=== PATIENT | male | born 1940 | race African-American/Black ===

== ENCOUNTER 2019-12-28 10:11 | Outpatient (CLI) | payer MEDICARE, SELFPAY | END 2019-12-28 10:12 | disposition home or self-care (01) | LOC: ANHAUDIO 10:13 | PROVIDERS: PCP Internal Medicine; Visit Provider Internal Medicine | DX: H90.A21 Sensorineural hearing loss, unilateral, right ear, with restricted hearing on the contralateral side (principal); H90.A32 Mixed conductive and sensorineural hearing loss, unilateral, left ear with restricted hearing on the contralateral side | CPT/HCPCS: 92557; 92567 ==

== ENCOUNTER 2020-06-04 09:54 | Outpatient (CLI) | payer MEDICARE, SELFPAY ==
--- NOTE | ~2020-06-04 | CT_ITS ---
EXAMINATION: CTA chest DATE: 06/04/2020 10:32 INDICATION: Ascending aortic aneurysm. TECHNIQUE: Computed tomographic angiography (CTA) of the chest was performed with 100 mL Omnipaque-35 0 intravenous contrast. Automated exposure control and iterative reconstruction technique were employ ed. The dose-length product was 610.74 mGy-cm. Maximum intensity projection 3D-reconstructions of the aorta and other arteries were constructed by the technologist on a separate workstation. COMPARISON: Chest CT 01/27/2019 FINDINGS: Lung volumes are small. There are widespread peripheral reticular and groundglass opacities in the lungs bilaterally with areas of chronic atelectasis. No honeycombing. A calcified left lung n odule is consistent with old granulomatous disease. No pleural effusion. The heart size is normal. Th ere are coronary artery calcifications. No pericardial effusion. There is a 4.6 cm fusiform aneurysm of ascending aorta. Descending thoracic aorta is normal in caliber. Again seen are 2 hyperenhancing m asses in the liver with larger measuring 11 mm, likely focal nodular hyperplasia, hemangiomas, or tra nsient hepatic attenuation difference (YADIRA). There are cysts in the kidneys measuring up to 6 mm on the right. There is mild thoracic spondylosis and severe cervical spondylosis. There is a hemangioma in T8 vertebral body. IMPRESSION: 1. Stable 4.6 cm fusiform aneurysm of ascending aorta. 2. Stable diffuse lung disease. The differential diagnosis includes chronic hypersensitivity pneumoni tis, sarcoid, and nonspecific interstitial pneumonia (NSIP). Reviewed, dictated and finalized at location B. IMPRESSION: 1. Stable 4.6 cm fusiform aneurysm of ascending aorta. 2. Stable diffuse lung disease. The differential diagnosis includes chronic hyp ersensitivity pneumonitis, sarcoid, and nonspecific interstitial pneumonia (NSI P).
[2020-06-04 10:25] LABS: Estimated Glomerular Filt Rate > 60
== END 2020-06-04 09:55 | disposition home or self-care (01) ==
LOC: ANHIMG 09:58
PROVIDERS: PCP Internal Medicine; Visit Provider Internal Medicine Cardiovascular Disease
DX: I71.2 Thoracic aortic aneurysm, without rupture (principal); R91.8 Other nonspecific abnormal finding of lung field
CPT/HCPCS: 36415; 71275; Q9967

== ENCOUNTER 2020-06-26 10:28 | Outpatient (CLI) | payer MEDICARE, SELFPAY ==
[2020-06-26 11:10] LABS: Basophils Absolute Auto 0.1 K/mm3 (0.0-0.1); Basophils Percent Auto 0.7 % (0.2-1.2); Eosinophils Absolute Auto 0.2 K/mm3 (0-0.3); Eosinophils Percent Auto 2.3 % (0-4.4); Hematocrit 37.5 % (42.0-52.0); Hemoglobin 12.3 g/dL (14.0-18.0); Immature Granulocyte Absolute 0.01 K/mm3 (0.00-0.031); Immature Granulocyte Percent A 0.1 % (0-0.5); Immature Platelet Fraction Pct 8.7 % (0.9-11.2); Lymphocytes Absolute Auto 2.18 K/mm3 (0.9-3.2); Lymphocytes Percent Auto 26.5 % (18.3-44.2); Mean Corpuscular HGB Conc 32.8 g/dl (32-36); Mean Corpuscular Hemoglobin 28.5 pg (26-34); Mean Platelet Volume 11.9 fl (7.4-10.4); Monocytes Absolute Auto 0.9 K/mm3 (0.1-0.6); Neutrophils Absolute Auto 4.9 K/mm3 (1.3-6.7); Neutrophils Percent Auto 59.4 % (45.5-73.1); Platelet Count Result 144 k/mm3 (150-375); Red Blood Count 4.31 M/mm3 (4.6-6.20); Red Cell Distribution Width 14.5 % (11.5-14.5); White Blood Count 8.2 K/mm3 (4.5-10.0)
[2020-06-26 11:20] LABS: Anion Gap 7 mmol/L (8-16); Blood Urea Nitrogen 20 mg/dL (9-20); Calcium 9.5 mg/dL (8.4-10.2); Carbon Dioxide 27 mmol/L (22-30); Chloride 101 mmol/L (98-107); Estimated Glomerular Filt Rate > 60; Glucose 110 mg/dL (75-110); Potassium 4.1 mmol/L (3.4-5.0); Sodium 135 mmol/L (137-145)
[2020-06-26 11:28] LABS: Hemoglobin A1C 6.1 % (<5.7)
[2020-06-26 11:30] LABS: Creatinine Urine 140.7 mg/dL
[2020-06-26 11:53] LABS: MALB Creatinine Ratio < 4.3 mg/g (0-30); Microalbumin Urine Random < 6.0 mg/L (0-16.7)
== END 2020-06-26 10:29 | disposition home or self-care (01) ==
PROVIDERS: PCP Internal Medicine; Visit Provider Internal Medicine
DX: E11.9 Type 2 diabetes mellitus without complications (principal)
CPT/HCPCS: 36415; 80048; 82043; 83036; 85025; 85055

== ENCOUNTER 2020-07-10 08:00 | Outpatient (CLI) | payer MEDICARE, SELFPAY ==
--- NOTE | ~2020-07-10 | CT_ITS ---
EXAMINATION: CT soft tissue neck w con EXAM DATE: 07/10/2020 09:01 INDICATION: Lump left side of neck. TECHNIQUE: Spiral CT of the neck was performed following intravenous injection of 75 mL Omnipaque 350 . Axial, coronal and sagittal images were reviewed. The dose-length product (DLP) for this examinat ion was 590.72 mGy-cm. The exposure was tailored according to patient size (auto mA exposure control ), and iterative reconstruction (ASIR) was used as additional dose reduction technique. There is no prior study for comparison. FINDINGS: There is an externally placed marker in the left submandibular region. Left submandibular g land is deep to the externally placed marker and there is mild dilation of the submandibular gland du cts, could be results of the 3 mm stone suspected to be in the submandibular duct anteriorly. At the same level there is a mildly enlarged left internal jugular chain lymph node at 1.5 x 1.1 cm. This is the largest cervical lymph node identified. The thyroid gland is unremarkable. The superior mediastinum is unremarkable. The airway is unrema rkable. Parapharyngeal and pre-glottic fat planes are preserved. The opacified vasculature is pat ent. The orbits are unremarkable. Visualized sinuses and mastoid air cells are well aerated. Ch ronic apical linear opacities, correlate with recent pulmonary CT report. There is cervical spondylo sis. IMPRESSION: 1. Palpable abnormality probably left submandibular gland, appears symmetric to the other side but h as mild duct dilation likely result of 3 mm stone in its duct distally. 2. Mildly enlarged left internal jugular chain lymph node, probably reactive. Reviewed, dictated and finalized at location A. IMPRESSION: 1. Palpable abnormality probably left submandibular gland, appears symmetric t o the other side but has mild duct dilation likely result of 3 mm stone in its duct distally. 2. Mildly enlarged left internal jugular chain lymph node, probably reactive.
== END 2020-07-10 08:01 | disposition home or self-care (01) ==
PROVIDERS: PCP Internal Medicine; Visit Provider Internal Medicine
DX: R59.0 Localized enlarged lymph nodes (principal); R91.8 Other nonspecific abnormal finding of lung field
CPT/HCPCS: 70491; Q9967

== ENCOUNTER 2020-08-14 10:22 | Outpatient (CLI) | payer MEDICARE, SELFPAY ==
[2020-08-14 11:03] LABS: Basophils Absolute Auto 0.1 K/mm3 (0.0-0.1); Basophils Percent Auto 0.7 % (0.2-1.2); Eosinophils Absolute Auto 0.2 K/mm3 (0-0.3); Eosinophils Percent Auto 2.4 % (0-4.4); Hematocrit 40.3 % (42.0-52.0); Hemoglobin 12.8 g/dL (14.0-18.0); Immature Granulocyte Absolute 0.01 K/mm3 (0.00-0.031); Immature Granulocyte Percent A 0.1 % (0-0.5); Immature Platelet Fraction Pct 10.2 % (0.9-11.2); Lymphocytes Absolute Auto 2.14 K/mm3 (0.9-3.2); Lymphocytes Percent Auto 29.1 % (18.3-44.2); Mean Corpuscular HGB Conc 31.8 g/dl (32-36); Mean Corpuscular Hemoglobin 28.2 pg (26-34); Mean Corpuscular Volume 88.8 fl (80-100); Mean Platelet Volume 11.9 fl (7.4-10.4); Monocytes Absolute Auto 0.9 K/mm3 (0.1-0.6); Monocytes Percent Auto 11.7 % (2.6-8.5); Neutrophils Absolute Auto 4.1 K/mm3 (1.3-6.7); Platelet Count Result 117 k/mm3 (150-375); Red Blood Count 4.54 M/mm3 (4.6-6.20); Red Cell Distribution Width 14.1 % (11.5-14.5); White Blood Count 7.4 K/mm3 (4.5-10.0)
== END 2020-08-14 10:23 | disposition home or self-care (01) ==
PROVIDERS: PCP Internal Medicine; Visit Provider Internal Medicine
DX: D61.818 Other pancytopenia (principal)
CPT/HCPCS: 36415; 85025; 85055

== ENCOUNTER 2020-08-14 15:40 | Outpatient (CLI) | payer MEDICARE, SELFPAY ==
[2020-08-14 17:30] LABS: Folic Acid 19.8 ng/mL (2.76->20)
== END 2020-08-14 15:41 | disposition home or self-care (01) ==
LOC: ANHLAB 15:41
PROVIDERS: PCP Internal Medicine; Visit Provider Internal Medicine
DX: D61.818 Other pancytopenia (principal)
CPT/HCPCS: 36415; 82607; 82746; 85025; 85055

== ENCOUNTER 2020-12-12 10:00 | Outpatient (CLI) | payer MEDICARE, SELFPAY ==
[2020-12-12 10:51] LABS: Anion Gap 6 mmol/L (8-16); Blood Urea Nitrogen 12 mg/dL (9-20); Calcium 9.5 mg/dL (8.4-10.2); Carbon Dioxide 29 mmol/L (22-30); Chloride 102 mmol/L (98-107); Estimated Glomerular Filt Rate > 60; Glucose 120 mg/dL (75-110); Magnesium 1.5 mg/dL (1.6-2.3); Potassium 4.4 mmol/L (3.4-5.0); Sodium 137 mmol/L (137-145)
== END 2020-12-12 10:01 | disposition home or self-care (01) ==
PROVIDERS: PCP Internal Medicine; Visit Provider Internal Medicine Cardiovascular Disease
DX: I44.2 Atrioventricular block, complete (principal); E11.69 Type 2 diabetes mellitus with other specified complication; E78.5 Hyperlipidemia, unspecified; I10 Essential (primary) hypertension; E11.59 Type 2 diabetes mellitus with other circulatory complications
CPT/HCPCS: 36415; 80048; 83735; 84443

== ENCOUNTER 2021-04-11 08:53 | Outpatient (CLI) | payer MEDICARE, SELFPAY ==
[2021-04-11 10:19] LABS: Anion Gap 7 mmol/L (8-16); Blood Urea Nitrogen 19 mg/dL (9-20); Calcium 9.4 mg/dL (8.4-10.2); Carbon Dioxide 27 mmol/L (22-30); Chloride 105 mmol/L (98-107); Estimated Glomerular Filt Rate > 60; Glucose 111 mg/dL (75-110); Magnesium 1.8 mg/dL (1.6-2.3); Sodium 139 mmol/L (137-145)
== END 2021-04-11 08:54 | disposition home or self-care (01) ==
PROVIDERS: PCP Internal Medicine; Visit Provider Internal Medicine Cardiovascular Disease
DX: E83.42 Hypomagnesemia (principal)
CPT/HCPCS: 36415; 80048; 83735

== ENCOUNTER 2021-10-09 07:15 | Outpatient (CLI) | payer MEDICARE, SELFPAY ==
--- NOTE | ~2021-10-09 | CT_ITS ---
EXAMINATION: CTA chest DATE: 10/09/2021 07:51 INDICATION: Thoracic aortic aneurysm TECHNIQUE: Computed tomographic angiography (CTA) of the chest was performed with 100 mL Omnipque-350 intravenous contrast. Maximum intensity projection 3D-reconstructions of the aorta and other arterie s were constructed by the technologist on a separate workstation. The dose-length product (DLP) was 5 83.75 mGy-cm. Automated exposure control and iterative reconstruction technique were employed. COMPARISON: None. FINDINGS: There is a 4.5 x 4.3 cm fusiform aneurysm of the ascending aorta at the level of the main p ulmonary artery. There is no dissection. The remaining thoracic aorta is normal in caliber. There are stable chronic peripheral widespread reticular and groundglass opacities. No acute airspace opacitie s are identified. There is no pleural effusion or pneumothorax. No pathologically enlarged thoracic l ymph nodes are identified. The heart size is normal. Two stable hyperenhancing masses of the liver me asuring up to 11 mm are again seen, consistent focal nodular lesion nor transient hepatic attenuation difference. Cysts of the kidneys measure up to 6 mm on the right. There is mild thoracic spondylosis . IMPRESSION: 1. Stable fusiform aneurysm of the ascending aorta. 2. Stable chronic diffuse lung disease. Differential as previously described including hypersensitivi ty pneumonitis, sarcoid, and nonspecific interstitial pneumonia. Reviewed, dictated and finalized at location A. NT PROSECUTION ATTORNEY IMPRESSION: 1. Stable fusiform aneurysm of the ascending aorta. 2. Stable chronic diffuse lung disease. Differential as previously described in cluding hypersensitivity pneumonitis, sarcoid, and nonspecific interstitial pne umonia.
[2021-10-09 07:44] LABS: Estimated Glomerular Filt Rate > 60
== END 2021-10-09 07:16 | disposition home or self-care (01) ==
LOC: ANHIMG 07:15
PROVIDERS: PCP Internal Medicine; Visit Provider Internal Medicine Cardiovascular Disease
DX: I71.4 Abdominal aortic aneurysm, without rupture (principal); J98.4 Other disorders of lung
CPT/HCPCS: 71275; Q9967

== ENCOUNTER 2022-02-17 15:41 | Outpatient (CLI) | payer MEDICARE, SELFPAY ==
[2022-02-17 16:12] LABS: Basophils Absolute Auto 0.1 K/mm3 (0.0-0.1); Basophils Percent Auto 0.9 % (0.2-1.2); Eosinophils Absolute Auto 0.2 K/mm3 (0-0.3); Eosinophils Percent Auto 2.1 % (0-4.4); Hematocrit 44.2 % (42.0-52.0); Hemoglobin 13.6 g/dL (14.0-18.0); Immature Granulocyte Absolute 0.02 K/mm3 (0.00-0.031); Immature Granulocyte Percent A 0.2 % (0-0.5); Lymphocytes Absolute Auto 2.37 K/mm3 (0.9-3.2); Mean Corpuscular HGB Conc 30.8 g/dl (32-36); Mean Corpuscular Hemoglobin 28.2 pg (26-34); Mean Corpuscular Volume 91.5 fl (80-100); Mean Platelet Volume 12.1 fl (7.4-10.4); Monocytes Absolute Auto 0.8 K/mm3 (0.1-0.6); Monocytes Percent Auto 9.3 % (2.6-8.5); Neutrophils Absolute Auto 5.3 K/mm3 (1.3-6.7); Neutrophils Percent Auto 60.5 % (45.5-73.1); Platelet Count Result 70 k/mm3 (150-375); Red Blood Count 4.83 M/mm3 (4.6-6.20); Red Cell Distribution Width 14.2 % (11.5-14.5); White Blood Count 8.8 K/mm3 (4.5-10.0)
[2022-02-17 16:50] LABS: Alanine Aminotransferase 32 U/L (4-50); Albumin Level 4.7 g/dL (3.5-5.1); Alkaline Phosphatase 103 U/L (38-126); Anion Gap 6 mmol/L (8-16); Aspartate Amino Transferase 39 U/L (17-59); Bilirubin,Total 0.6 mg/dL (0.2-1.3); Blood Urea Nitrogen 16 mg/dL (9-20); Calcium 9.5 mg/dL (8.4-10.2); Carbon Dioxide 25 mmol/L (22-30); Chloride 104 mmol/L (98-107); Estimated Glomerular Filt Rate > 60; Glucose 83 mg/dL (65-110); Potassium 4.3 mmol/L (3.4-5.0); Sodium 135 mmol/L (137-145)
[2022-02-17 17:28] LABS: Iron 113 ug/dL (49-181); Percent Iron Saturation 37 % (20-50)
[2022-02-17 17:51] LABS: Folic Acid > 20.0 ng/mL (2.76->20)
[2022-02-24 12:36] LABS: Reference Lab Test Result Negative
== END 2022-02-17 15:42 | disposition home or self-care (01) ==
LOC: ANHLAB 15:43
PROVIDERS: PCP Internal Medicine; Visit Provider Internal Medicine Hematology & Oncology
DX: D69.59 Other secondary thrombocytopenia (principal)
CPT/HCPCS: 36415; 80053; 82607; 82728; 82746; 83540; 83550; 85025; 86023

== ENCOUNTER 2022-02-25 09:12 | Outpatient (CLI) | payer MEDICARE, SELFPAY ==
--- NOTE | ~2022-02-25 | US_ITS ---
EXAMINATION: US abdomen complete DATE: 02/25/2022 10:24 INDICATION: Other secondary thrombocytopenia TECHNIQUE: Multiple grayscale and Doppler ultrasound images of the abdomen were obtained. COMPARISON: CT, 10/09/2021 FINDINGS: Bowel gas obscures visualization of the pancreas. The liver is normal with normal echogenic ity and echotexture. No surface nodularity. Normal hepatopetal flow in the main portal vein. The gall bladder is normal with no abnormal wall thickening, pericholecystic fluid or stones. The normal commo n bile duct measures 3 mm. There was no sonographic Oconnor sign. The visualized portions of the aorta and inferior vena cava are normal. The right kidney measures 9.8 x 4.7 x 5.4 cm. The left kidney measures 9.8 x 4.8 x 5.1 cm. The kidney s demonstrate normal parenchymal echogenicity. There is no hydronephrosis. The spleen is not well dem onstrated sonographically but had a normal appearance on the comparison CT. IMPRESSION: 1. No sonographic correlate for the patient's symptoms. Reviewed, dictated and finalized at location A.
== END 2022-02-25 09:13 | disposition home or self-care (01) ==
PROVIDERS: PCP Internal Medicine; Visit Provider Internal Medicine Hematology & Oncology
DX: D69.59 Other secondary thrombocytopenia (principal)
CPT/HCPCS: 76700

== ENCOUNTER 2022-06-10 08:03 | Outpatient (CLI) | payer MEDICARE, SELFPAY ==
[2022-06-10 08:37] LABS: Basophils Absolute Auto 0.1 K/mm3 (0.0-0.1); Basophils Percent Auto 1.1 % (0.2-1.2); Eosinophils Absolute Auto 0.2 K/mm3 (0-0.3); Eosinophils Percent Auto 2.9 % (0-4.4); Hematocrit 42.1 % (42.0-52.0); Hemoglobin 13.6 g/dL (14.0-18.0); Immature Granulocyte Absolute 0.01 K/mm3 (0.00-0.031); Immature Granulocyte Percent A 0.1 % (0-0.5); Immature Platelet Fraction Pct 15.3 % (0.9-11.2); Lymphocytes Absolute Auto 2.28 K/mm3 (0.9-3.2); Lymphocytes Percent Auto 32.7 % (18.3-44.2); Mean Corpuscular HGB Conc 32.3 g/dl (32-36); Mean Corpuscular Volume 86.6 fl (80-100); Mean Platelet Volume 12.4 fl (7.4-10.4); Monocytes Absolute Auto 0.8 K/mm3 (0.1-0.6); Monocytes Percent Auto 11.3 % (2.6-8.5); Neutrophils Absolute Auto 3.6 K/mm3 (1.3-6.7); Neutrophils Percent Auto 51.9 % (45.5-73.1); Platelet Count Result 66 k/mm3 (150-375); Red Blood Count 4.86 M/mm3 (4.6-6.20)
[2022-06-10 11:39] LABS: Alanine Aminotransferase 33 U/L (6-50); Albumin Level 4.4 g/dL (3.5-5.1); Alkaline Phosphatase 85 U/L (38-126); Anion Gap 8 mmol/L (8-16); Aspartate Amino Transferase 36 U/L (17-59); Bilirubin,Total 0.6 mg/dL (0.2-1.3); Blood Urea Nitrogen 20 mg/dL (9-20); Calcium 9.7 mg/dL (8.4-10.2); Carbon Dioxide 27 mmol/L (22-30); Chloride 99 mmol/L (98-107); Estimated Glomerular Filt Rate > 60; Glucose 125 mg/dL (65-110); Iron 81 ug/dL (49-181); Potassium 4.4 mmol/L (3.4-5.0); Sodium 134 mmol/L (137-145)
[2022-06-10 11:48] LABS: Percent Iron Saturation 27 % (20-50)
== END 2022-06-10 08:04 | disposition home or self-care (01) ==
LOC: ANHLAB 08:04
PROVIDERS: PCP Internal Medicine; Visit Provider Internal Medicine Hematology & Oncology
DX: D69.59 Other secondary thrombocytopenia (principal)
CPT/HCPCS: 36415; 80053; 82728; 83540; 83550; 85025; 85055

== ENCOUNTER 2022-10-28 07:58 | Outpatient (CLI) | payer MEDICARE, SELFPAY ==
--- NOTE | ~2022-10-28 | CT_ITS ---
EXAMINATION: CTA chest DATE: 10/28/2022 08:38 INDICATION: Sarcoidosis. Aortic aneurysm. TECHNIQUE: Computed tomographic angiography (CTA) of the chest was performed with 100 mL Omnipaque-35 0 intravenous contrast. Automated exposure control and iterative reconstruction technique were employ ed. The dose-length product was 617.99 mGy-cm. Maximum intensity projection 3D-reconstructions of the aorta and other arteries were constructed by the technologist on a separate workstation. COMPARISON: Chest CT 10/09/2021 FINDINGS: The lung volumes are small. There are groundglass opacities, septal thickening, and bandlik e airspace opacities in all lobes. No bronchiectasis or honeycombing. A calcified left lung nodule is consistent with old granulomatous disease. No pleural effusion. The heart size is normal. There are coronary artery calcifications. No pericardial effusion. There is ectasia of ascending aorta measurin g 4.7 cm. There are no pathologically enlarged lymph nodes. There is a small sliding hiatal hernia. T here is cortical thinning of the kidneys. There is moderate thoracic spondylosis. There is mild chron ic anterior wedging of multiple vertebral bodies. There is severe cervical spondylosis. There is a he mangioma in T8 vertebral body. IMPRESSION: 1. Stable diffuse lung disease. The differential diagnosis includes hypersensitivity pneumonitis, chung coid, and nonspecific interstitial pneumonia (NSIP). 2. Stable ectasia of ascending aorta measuring 4.7 cm. Reviewed, dictated and finalized at location A. RICT PLANT SUPERVISOR IMPRESSION: 1. Stable diffuse lung disease. The differential diagnosis includes hypersensit ivity pneumonitis, sarcoid, and nonspecific interstitial pneumonia (NSIP). 2. Stable ectasia of ascending aorta measuring 4.7 cm.
[2022-10-28 08:27] LABS: Estimated Glomerular Filt Rate > 60
== END 2022-10-28 07:59 | disposition home or self-care (01) ==
PROVIDERS: PCP Internal Medicine; Visit Provider Internal Medicine Cardiovascular Disease
DX: I71.21 Aneurysm of the ascending aorta, without rupture (principal); I35.1 Nonrheumatic aortic (valve) insufficiency; Z86.2 Personal history of diseases of the blood and blood-forming organs and certain disorders involving the immune mechanism
CPT/HCPCS: 71275; Q9967

== ENCOUNTER 2023-03-18 15:06 | Outpatient (CLI) | payer MEDICARE, SELFPAY ==
[2023-03-18 18:39] LABS: Prostate Specific Antigen 0.1 ng/mL (< OR = 4.0)
[2023-03-18 19:15] LABS: Hemoglobin A1C 6.3 % (<5.7)
== END 2023-03-18 15:07 | disposition home or self-care (01) ==
LOC: ANHLAB 15:08
PROVIDERS: PCP Internal Medicine; Visit Provider Internal Medicine Hematology & Oncology
DX: D69.59 Other secondary thrombocytopenia (principal); E11.9 Type 2 diabetes mellitus without complications; R97.20 Elevated prostate specific antigen [PSA]
CPT/HCPCS: 36415; 83036; 84153

== ENCOUNTER 2023-12-03 08:01 | Outpatient (CLI) | payer MEDICARE, SELFPAY ==
--- NOTE | ~2023-12-03 | CT_ITS ---
EXAMINATION: CTA chest DATE: 12/03/2023 08:29 INDICATION: Abdominal aortic aneurysm TECHNIQUE: Computed tomographic angiography (CTA) of the chest was performed without and with 100 mL Omnipaque-350 intravenous contrast. Volume-rendered 3D-reconstructions of the aorta and large arterie s were constructed by the technologist on a separate workstation. Automated exposure control and iter ative reconstruction technique were employed. The dose-length product was 510.63 mGy-cm. COMPARISON: 10/28/2022, 10/09/2021 and 09/09/2016 FINDINGS: Again seen are small lung volumes with groundglass opacities with irregular septal line thickening an d bandlike opacities without associated bronchiectasis or honeycombing scattered with peripheral pred ominance throughout both lungs. Calcified left upper lobe nodule consistent with old granulomatous di sease. No new pulmonary nodules, pneumonia, pulmonary edema or pleural effusion. Heart size is normal . Atherosclerotic coronary artery calcifications. No pericardial effusion. Fusiform aneurysm of the a scending thoracic aorta which measures up to 4.9 x 4.7 cm. This tapers to a normal caliber of 3.4 x 3 .4 cm in diameter at the apex of the arch following the takeoff of the left subclavian artery. The re mainder of the more distal visualized aorta is normal in caliber. No dissection. 1.5 cm left adrenal nodule which is without significant change since since 2016 most consistent with an adenoma. Visualiz ed upper abdomen is unremarkable. Moderate to severe thoracic spondylosis with mild anterior wedging of a few mid and lower thoracic and upper lumbar vertebral bodies. IMPRESSION: 1. No significant interval change in a fusiform 4.9 x 4.7 cm ascending thoracic aortic aneurysm for w [facility] differential would include hypersensitivity pneumonitis, sarcoid, and nonspecific interstitial pneumonia (NSIP). 2. Stable diffuse lung disease Reviewed, dictated and finalized at location A. RVISOR FLOOR ASSEMBLY IMPRESSION: 1. No significant interval change in a fusiform 4.9 x 4.7 cm ascending thoracic aortic aneurysm for which differential would include hypersensitivity pneumoni tis, sarcoid, and nonspecific interstitial pneumonia (NSIP). 2. Stable diffuse lung disease
[2023-12-03 08:23] LABS: Estimated Glomerular Filt Rate > 60
== END 2023-12-03 08:02 | disposition home or self-care (01) ==
PROVIDERS: PCP Internal Medicine; Visit Provider Internal Medicine Cardiovascular Disease
DX: I15.2 Hypertension secondary to endocrine disorders (principal); E11.59 Type 2 diabetes mellitus with other circulatory complications; I71.21 Aneurysm of the ascending aorta, without rupture; J98.4 Other disorders of lung
CPT/HCPCS: 71275; Q9967

== ENCOUNTER 2024-03-28 08:05 | Outpatient (CLI) | payer MEDICARE, SELFPAY ==
[2024-03-28 08:39] LABS: Basophils Absolute Auto 0.1 K/mm3 (0.0-0.1); Eosinophils Absolute Auto 0.1 K/mm3 (0-0.3); Eosinophils Percent Auto 1.9 % (0-4.4); Hematocrit 40.3 % (42.0-52.0); Immature Granulocyte Absolute 0.01 K/mm3 (0.00-0.031); Immature Granulocyte Percent A 0.2 % (0-0.5); Lymphocytes Absolute Auto 1.77 K/mm3 (0.9-3.2); Lymphocytes Percent Auto 28.7 % (18.3-44.2); Mean Corpuscular HGB Conc 32.3 g/dl (32-36); Mean Corpuscular Hemoglobin 28.7 pg (26-34); Mean Platelet Volume 11.3 fl (7.4-10.4); Monocytes Absolute Auto 0.7 K/mm3 (0.1-0.6); Monocytes Percent Auto 10.6 % (2.6-8.5); Neutrophils Absolute Auto 3.6 K/mm3 (1.3-6.7); Neutrophils Percent Auto 57.6 % (45.5-73.1); Platelet Count Result 152 k/mm3 (150-375); Red Blood Count 4.53 M/mm3 (4.6-6.20); Red Cell Distribution Width 14.2 % (11.5-14.5); White Blood Count 6.2 K/mm3 (4.5-10.0)
[2024-03-28 09:51] LABS: Iron 97 ug/dL (49-181)
[2024-03-28 09:53] LABS: Alanine Aminotransferase 43 U/L (6-50); Albumin Level 4.2 g/dL (3.5-5.1); Alkaline Phosphatase 87 U/L (38-126); Anion Gap 4 mmol/L (4-12); Aspartate Amino Transferase 33 U/L (17-59); Bilirubin,Total 0.6 mg/dL (0.2-1.3); Blood Urea Nitrogen 15 mg/dL (9-20); Calcium 9.8 mg/dL (8.4-10.2); Carbon Dioxide 27 mmol/L (22-30); Chloride 107 mmol/L (98-107); Estimated Glomerular Filt Rate > 60; Glucose 104 mg/dL (65-110); Potassium 4.3 mmol/L (3.4-5.0); Sodium 138 mmol/L (137-145)
[2024-03-28 10:02] LABS: Percent Iron Saturation 40 % (20-50)
== END 2024-03-28 08:06 | disposition home or self-care (01) ==
LOC: ANHLAB 08:09
PROVIDERS: Nurse Practitioner Family; PCP Internal Medicine; Visit Provider Internal Medicine Hematology & Oncology
DX: D69.59 Other secondary thrombocytopenia (principal); E11.65 Type 2 diabetes mellitus with hyperglycemia
CPT/HCPCS: 36415; 80053; 83036; 83540; 83550; 85025

== ENCOUNTER 2024-09-28 09:38 | Outpatient (CLI) | payer MEDICARE, SELFPAY ==
[2024-09-28 10:06] LABS: Basophils Absolute Auto 0.1 K/mm3 (0.0-0.1); Basophils Percent Auto 1.3 % (0.2-1.2); Eosinophils Absolute Auto 0.2 K/mm3 (0-0.3); Hematocrit 37.4 % (42.0-52.0); Hemoglobin 12.1 g/dL (14.0-18.0); Immature Granulocyte Absolute 0.01 K/mm3 (0.00-0.031); Immature Granulocyte Percent A 0.2 % (0-0.5); Lymphocytes Percent Auto 34.5 % (18.3-44.2); Mean Corpuscular HGB Conc 32.4 g/dl (32-36); Mean Corpuscular Hemoglobin 28.9 pg (26-34); Mean Corpuscular Volume 89.5 fl (80-100); Mean Platelet Volume 10.6 fl (7.4-10.4); Monocytes Absolute Auto 0.7 K/mm3 (0.1-0.6); Monocytes Percent Auto 10.8 % (2.6-8.5); Neutrophils Absolute Auto 3.2 K/mm3 (1.3-6.7); Neutrophils Percent Auto 50.2 % (45.5-73.1); Platelet Count Result 166 k/mm3 (150-375); Red Blood Count 4.18 M/mm3 (4.6-6.20); Red Cell Distribution Width 14.3 % (11.5-14.5); White Blood Count 6.4 K/mm3 (4.5-10.0)
[2024-09-28 19:38] LABS: Iron 86 ug/dL (49-181)
[2024-09-28 19:47] LABS: Percent Iron Saturation 35 % (20-50)
[2024-09-28 20:39] LABS: Anion Gap 3 mmol/L (4-12); Blood Urea Nitrogen 17 mg/dL (9-20); Calcium 9.3 mg/dL (8.4-10.2); Carbon Dioxide 27 mmol/L (22-30); Chloride 106 mmol/L (98-107); Estimated Glomerular Filt Rate > 60; Glucose 93 mg/dL (65-110); Potassium 4.1 mmol/L (3.4-5.0); Sodium 136 mmol/L (137-145)
== END 2024-09-28 09:39 | disposition home or self-care (01) ==
LOC: ANHLAB 09:39
PROVIDERS: PCP Internal Medicine; Visit Provider Internal Medicine Hematology & Oncology
DX: D69.59 Other secondary thrombocytopenia (principal)
CPT/HCPCS: 36415; 80048; 82728; 83540; 83550; 85025

== ENCOUNTER 2025-04-04 10:29 | Outpatient (CLI) | payer MEDICARE, SELFPAY ==
[2025-04-04 10:50] LABS: Basophils Absolute Auto 0.1 K/mm3 (0.0-0.1); Basophils Percent Auto 0.9 % (0.2-1.2); Eosinophils Absolute Auto 0.1 K/mm3 (0-0.3); Eosinophils Percent Auto 1.3 % (0-4.4); Hematocrit 37.1 % (42.0-52.0); Hemoglobin 11.9 g/dL (14.0-18.0); Immature Granulocyte Absolute 0.02 K/mm3 (0.00-0.031); Immature Granulocyte Percent A 0.2 % (0-0.5); Lymphocytes Absolute Auto 1.96 K/mm3 (0.9-3.2); Lymphocytes Percent Auto 21.8 % (18.3-44.2); Mean Corpuscular HGB Conc 32.1 g/dl (32-36); Mean Corpuscular Hemoglobin 28.7 pg (26-34); Mean Corpuscular Volume 89.6 fl (80-100); Mean Platelet Volume 11.1 fl (7.4-10.4); Monocytes Absolute Auto 0.8 K/mm3 (0.1-0.6); Neutrophils Percent Auto 66.8 % (45.5-73.1); Platelet Count Result 147 k/mm3 (150-375); Red Blood Count 4.14 M/mm3 (4.6-6.20); Red Cell Distribution Width 13.9 % (11.5-14.5)
--- OUTSIDE RECORDS SUMMARY | 2025-04-04 11:38 | XMS_ITS | Clinical Summary ---
Author Organization [facility] Address [address] [place] [address] Care Team Providers Care Correctional Officer Chief Name Role Phone Cristian Vu DO Primary Care Provider [phone] Source Comments [facility],non-owned Affiliates and Associated Physician Practices is amultiple site organization consisting of ambulatory clinics and hospital sitesin [place], [place], [place]. This disclosure is being madepursuant to the Care Everywhere program and may not contain all information available regarding this patient. Last updated 18.[facility] Immunizations Immunization Administration Dates Next Due INFLUENZA VACCINE, HIGH-DOSE , QUADR. 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 [place] Gender Identity Not on file Sexual Orientation Not on file Plan of Treatment Health Maintenance Due Date Last Done Comments DTAP/TDAP/TD VACCINES (1 - Tdap) 1961 PNEUMOCOCCAL VACCINE 50+ (1 of 1 - PCV) 1992 ZOSTER VACCINE (1 of 2) 1992 Respiratory Syncytial Virus (RSV) Vaccine Pt: or over 60 yrs (1 - 1-dose 75+ series) 2017 COVID-19 VACCINE ( - 2023-2 5 season) 2024 DEPRESSION SCREENING 10/26/2024 INFLUENZA VACCINE (Season Ended) 2025 07/04/20 20 HEPATITIS B VACCINE Aged Out No longe r eligible based on patient's age to complete this topic HIB VACCINE Aged Out No longer eligi ble based on patient's age to complete this topic HPV VACCINE Aged Out No longer eligi ble based on patient's age to complete this topic MENINGOCOCCAL (Group B) VACC INE SHARED DECISION-MAKING Aged Out No longer eligibl e based on patient's age to complete this topic MENINGOCOCCAL GROUPS A/C/Y/W VACCINE Aged Out No longer eligible b ased on patient's age to complete this topic Insurance [facility] MANAGED MEDICARE ADV Care Teams Correctional Officer Chief Relationship Specialty Start Date End Date Cristian Vu DO PCP - General Internal Medicine 07/04/20
--- OUTSIDE RECORDS SUMMARY | 2025-04-04 11:38 | XMS_ITS | Clinical Summary ---
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 Gender Identity Not on file Sexual Orientation Not on file Plan of Treatment Health Maintenance Due Date Last Done Comments Hepatitis C Virus (HCV) Screening 1942 TdaP Immunization 1942 Pneumococcal Immunization (50+ years) (1 of 1 - PCV) 1992 Respiratory Syncytial Virus (RSV) Immunization (Adult) (1 - 1-dose 75+ series) 2017 Influenza Immunization (#1) 06/26/202407/27, 07/04/2020, 08/31/2019, Additional history exists SARS-COV-2 Immunization ( season) 2024 07/30/2021, 12/27/2020, 12/03/2020 Zoster Immunization Completed 09/04/2020, 0 Hepatitis B Immunization Aged Out No longer eligible based on patient's age to complete this topic Meningococcal Immunization (ACWY) Aged Out No longer eligible based on patient's age to complete this topic Rotavirus Immunization Aged Out No lo nger eligible based on patient's age to complete this topic
--- OUTSIDE RECORDS SUMMARY | 2025-04-04 11:38 | XMS_ITS | Referral Summary ---
Author Organization [facility] Address [address] [place] [address] Care Team Providers Care Hris Coordinator Name Role Phone Cristian Vu DO Primary Care Provider [phone] Allergies Active Allergy Reactions Criticality Noted Date Comments Metoprolol Other (See comments) Low 03/28/2021 bradycardia Medications tamsulosin (FLOMAX) 0.4 mg extended release capsule Take 1 capsule (0.4 mg total) by mouth daily Active allopurinol (ZYLOPRIM) 300 mg tablet Take 1 tablet (300 mg total) by mouth daily Active quinapril-hydro chlorothiazide (ACCURETIC) 20-12.5 mg per tablet Take 1 tablet by mouth daily Active amlodipine-ator vastatin (CADUET) 10-10 mg per tablet Take 1 tablet by mouth daily Active metFORMIN (GLUCOPHAGE) 500 mg tablet Take 1 tablet (500 mg total) by mouth 2 (two) times a day with meals Active EPINEPHrine 0.3 mg/0.3 mL auto-injection syringe INJECT 1 PEN IN THE MUSCLE ONE TIME DIRECTED 07/10/2021 Active ferrous sulfate ER 324 mg (65 mg iron) EC tabletIndicatio ns:Iron Deficiency Anemia Take 65 mg by mouth Active magnesium oxide (MAG-OX) 400 mg (241.3 mg elemental magnesium) tablet 12/13/2021 Active cholecalciferol (Vitamin D3) 400 unit capsule 300 Units Active Active Problems Problem Noted Date Diagnosed Date Thrombocytopenia 04/07/2022 Erectile dysfunction due to diseases classified elsewhere 08/05/2021 Overview (08/05/2021): Added automatically from request for surgery [id number] Erectile dysfunction due to arterial insufficien cy 07/17/2021 Hypomagnesemia 03/28/2021 Other chest pain 01/23/2021 Lightheadedness 01/23/2021 H/O sarcoidosis 01/23/2021 Complete heart block 12/12/2020 Sick sinus syndrome 12/12/2020 H/O sinus bradycardia 11/21/2020 Medication side effects 11/21/2020 MARIO (dyspnea on exertion) 05/18/2020 First degree AV block 11/09/2019 ADINA on CPAP 11/09/2019 Symptomatic bradycardia 05/03/2019 Second degree atrioventricular block, Mobitz typ e I 05/03/2019 Prostate cancer 03/01/2019 Nonrheumatic aortic valve insufficiency 01/22/20 19 Ascending aortic aneurysm ([facility]) 01/21/2019 Hypertension associated with diabetes 01/21/2019 Mixed diabetic hyperlipidemi a associated with type 2 diabetes mellitus ([facility]) 01/21/2019 Social History Tobacco Use Types Packs/Day Years Used Date Smoking Tobacco: Never Smokeless Tobacco: Never Tobacco Cessation:Counseling Given: Not Answered Alcohol Use Standard Drinks/Week Comments Yes 0 (1 standard drink = 0.6 oz pur e alcohol) occassionaly Sex and Gender Information Value Date Recorded Sex Assigned at Not on file 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 Gender Identity Not on file Sexual Orientation Not on file Last Filed Vital Signs Vital Sign Reading Time Taken Comments Blood Pressure 120/62 02/16/2024 10:32 AM CDT Pulse 54 02/16/2024 10:32 AM CDT Temperature 36.8 C (98.3 F) 07/17/2021 9:44 AM CDT Respiratory Rate - - Oxygen Saturation 99% 02/16/2024 10:32 AM CDT Inhaled Oxygen Concentration - - Weight 83.5 kg (184 lb) 02/16/2024 10:32 AM CDT Height 172.7 cm (5' 8) 02/16/2024 10:32 AM CDT Body Mass Index 27.98 02/16/2024 10:32 AM CDT Plan of Treatment Not on file Procedures Procedure Name Priority Date/Time Associated Diagnosis Comments POCT LIPID PANEL Routine 11/18/2023 9:00 AM STENCILING MACHINE TENDER Lipid screening from Last 3 Months or Most Recently Relevant to Health Maintenance Results * POCT lipid panel (11/18/2023 9:00 AM STENCILING MACHINE TENDER) Cholesterol, POC 157 mg/dL Comment:GLU = 95 HDL, POC 63 mg/dL Triglycerides, POC 55 mg/dL LDL Cholesterol POC 82 mg/dL Chol/HDL Ratio, POC 1.3 Non-HDL Cholesterol, POC 93 mg/dL Cholesterol Total, POC 157 mg/dL Capillary blood 11/18/2023 9 :00 AM STENCILING MACHINE TENDER Reagan Floyd MD POINT OF CARE TEST ORDER CHIDI Final Result from Last 3 Months or Most Recently Relevant to Health Maintenance Insurance [employer] MEDICARE ADVANTAGE AENA MEDICARE Care Teams Hris Coordinator Relationship Specialty Start Date End Date Cristian Vu DO PCP - General 02/12/17
--- OUTSIDE RECORDS SUMMARY | 2025-04-04 11:38 | XMS_ITS | Clinical Summary ---
Author Organization [facility] Address [address] [place] [address] Care Team Providers Care Marriage Therapist Name Role Phone Cristian Vu DO Primary Care Provider Allergies Active Allergy Reactions Criticality Noted Date Comments Metoprolol Other (See Comments) Low 03/28/2021 bradycardia Medications aspirin (ECOTRIN EC) 81 mg Tablet, Delayed Release (E.C.) 81 mg. 01/16/2021 Active amLODIPine (NORVASC) 10 mg tablet 12/23/2021 Active atorvastatin (LIPITOR) 20 mg tablet 10 mg. 01/16/2021 Active allopurinoL (ZYLOPRIM) 300 mg tablet 300 mg. 01/16/2021 Active EPINEPHrine (EPIPEN) 0.3 mg/0.3 mL Auto-Injector INJECT 1 PEN IN THE MUSCLE ONE TIME DIRECTED 04/25/2019 Active metFORMIN (GLUCOPHAGE) 500 mg tablet Take 500 mg by mouth 2 times daily. Active magnesium oxide (MAG-OX) 400 mg (241.3 mg magnesium) tablet 12/13/2021 Active Multivitamin Capsule Take 1 Capsule by mouth daily. Active tamsulosin (FLOMAX) 0.4 mg capsule Take 0.4 mg by mouth daily. Active Active Problems Problem Noted Date Diagnosed Date Other secondary thrombocytopenia 02/12/2022 Encounters Date Type Department Care Team Description 03/21/2025 External Device Data [facility] ABSTRACTION Provider, Abstract 03/21/2025 External Device Data [facility] ABSTRACTION Provider, Abstract 03/15/2025 External Device Data [facility] ABSTRACTION Provider, Abstract 03/14/2025 External Device Data [facility] ABSTRACTION Provider, Abstract 01/11/2025 External Device Data [facility] ABSTRACTION Provider, Abstract from Last 3 Months Social History Tobacco Use Types Packs/Day Years Used Date Smoking Tobacco: Never Tobacco Cessation:Counseling Given: Not Answered Sex and Gender Information Value Date Recorded Sex Assigned at Not on file Legal Sex Male 2:43 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 Gender Identity Not on file Sexual Orientation Not on file Last Filed Vital Signs Vital Sign Reading Time Taken Comments Blood Pressure 147/73 10/04/2024 11:48 AM COMMERCIAL KITCHEN SERVICE TECHNICIAN Pulse 58 10/04/2024 11:48 AM COMMERCIAL KITCHEN SERVICE TECHNICIAN Temperature 36.7 C (98 F) 10/04/2024 11:48 AM COMMERCIAL KITCHEN SERVICE TECHNICIAN Respiratory Rate 16 10/04/2024 11:48 AM COMMERCIAL KITCHEN SERVICE TECHNICIAN Oxygen Saturation 97% 10/04/2024 11:48 AM COMMERCIAL KITCHEN SERVICE TECHNICIAN Inhaled Oxygen Concentration - - Weight 80.3 kg (177 lb) 10/04/2024 11:48 AM COMMERCIAL KITCHEN SERVICE TECHNICIAN Height 172.7 cm (5' 8) 09/17/2022 2:11 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 Body Mass Index 26.91 09/17/2022 2:11 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 Plan of Treatment Upcoming Encounters Date Type Department Care Team (Late st Contact Info) Description 04/06/2025 11:00 AM CDT Office Visit [facility] Oncology and H[facility]ology - [place] [address] [facility] [address] [place] [address] Kamari Phan MD [address] [place] [address] Health Maintenance Due Date Last Done Comments DIABETES ANNUAL FOOT EXAM 1960 DIABETES ANNUAL RETINAL EXAM 1960 DIABETES HBA1C Q 6 MONTHS 1960 DIABETES MICROALBUMIN ANNUAL SCREEN 1960 LDL CHOLESTEROL ANNUAL 1960 RSV VACCINE (60+ or ) (1 - 1-dose 75+ series) 2017 INFLUENZA VACCINE (#1) 2024 3, 06/20/2022, 08/21/2021, Additional history exists Medicare Ad[place]age ([place]) Preventative Visit/Annual Wellness Visit 10/26/2024 DTAP/TDAP/TD VACCINES (3 - T d or Tdap) 07/01/2032 07/01/2022, 10/26/2019 ZOSTER VACCINE Completed 09/04/2020, 07/04/2020 PNEUMOCOCCAL VACCINE 50+ YEARS Completed 06/14/2024 Insurance [employer] PPO MCR Care Teams Marriage Therapist Relationship Specialty Start Date End Date Cristian Vu DO [address] [place] [address] PCP - General Internal Medicine 02/12/22
--- OUTSIDE RECORDS SUMMARY | 2025-04-04 11:38 | XMS_ITS | Encounter Summary ---
Author Organization [facility] Address [address] [place] [address] Care Team Providers Care Fish Hatchery Assistant Name Role Phone Cristian Vu DO Primary Care Provider [phone]- [phone] Encounter Details Date Type Department Care Team (Late st Contact Info) Description 05/08/2014 Orders Only [facility] [address] [place] [id number] Scanning, Provider Social History Tobacco Use Types Packs/Day Years Used Date Smoking Tobacco: Never Assessed Sex and Gender Information Value Date Recorded Sex Assigned at Not on file Legal Sex Male 5:21 AM PHARMACY ASSISTANT Gender Identity Not on file Sexual Orientation Not on file documented as of this encounter Plan of Treatment Not on file documented as of this encounter Procedures Procedure Name Priority Date/Time Associated Diagnosis Comments SCAN - RADIOLOGY/IMAGING 05/08/2014 documented in this encounter Results * SCAN - RADIOLOGY/IMAGING (05/08/2014) Anatomical Region Laterality Modality Other us Provider Scanning Final Result documented in this encounter Visit Diagnoses Not on filedocumented in this encounter Care Teams Fish Hatchery Assistant Relationship Specialty Start Date End Date Cristian Vu DO PCP - General 02/12/17 documented as of this encounter
--- OUTSIDE RECORDS SUMMARY | 2025-04-04 11:38 | XMS_ITS | Clinical Summary ---
Author Organization [facility] Address [address] [place] [address] Care Team Providers Care Pipe Assembly Worker Name Role Phone Cristian Vu DO Primary Care Provider [phone] Allergies Active Allergy Reactions Criticality Noted Date [...] (08/05/2021): Added automatically from request for surgery [id number] Erectile dysfunction due to arterial insufficien cy [...] valve insufficiency 01/22/20 19 Ascending aortic aneurysm (CMS/HCC) 01/21/2019 Hypertension associated with diabetes 01/21/2019 Mixed diabetic hyperlipidemi a associated with type 2 diabetes mellitus (CMS/HCC) 01/21/2019 Surgical History Surgery Date Site/Laterality Comments [place] UNLISTED PROCEDURE ABDOME N PERITONEUM & OMENTUM Hernia Repair - 1999 (Added by TW Conv) Medical History Medical History Date Comments Elevated prostate specific antigen (PSA) Elevated prostate specific antigen (PSA) - (Added by TW Conv) Hypertension Diabetes mellitus (HCC) Aortic aneurysm Hyperlipidemia Valvular disease Family History Medical History Relation Name Comments Lung cancer Father Sudden Cardiac Father Relation Name Status Comments Father (Age 94) Mother (Age 91) Social History Tobacco Use Types Packs/Day Years Used Date Smoking Tobacco: Never Smokeless Tobacco: Never Tobacco Cessation:Counseling Given: Not Answered Alcohol Use Standard Drinks/Week Comments Yes 0 (1 standard drink = 0.6 oz pur e alcohol) occassionaly Sex and Gender Information Value Date Recorded Sex Assigned at Not on file Legal Sex Male 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 Gender Identity Not on file Sexual Orientation Not on file Obstetrics History Last Filed Vital Signs Vital Sign Reading [...] 02/16/2024 10:32 AM CDT Plan of Treatment Health Maintenance Due Date Last Done Comments Albumin Creatinine Ratio, Urine 1942 Depression Screening 1942 Fall Risk Assessment 1942 Hemoglobin A1C 1942 eGFR 1942 Dilated Eye Exam 1942 Foot Exam 1942 Hepatitis B Screening 1960 Pneumococcal vaccine 65+ (1 of 2 - PCV) 1961 Zoster Vaccine (1 of 2) 1992 Well Visit 65+ 2007 Lipid Panel 11/18/2024 11/18/2023, 09/0 10/2021, 06/24/2021, Additional history exists Influenza Vaccine (Season Ended) 2025 07/26/2020, 08/31/2019, 08/11/2018, Additional history exists DTaP/Tdap/Td Vaccine (2 - Td or Tdap) 10/26/2029 10/26/2019 Procedures Procedure Name Priority Date/Time Associated Diagnosis Comments POCT LIPID PANEL Routine 11/18/2023 9:00 AM HEAD BANQUET WAITER/WAITRESS Lipid screening from Last 3 Months or Most Recently Relevant to Health Maintenance Results * POCT lipid panel (11/18/2023 9:00 AM HEAD BANQUET WAITER/WAITRESS) Cholesterol, POC 157 mg/dL Comment:GLU = 95 HDL, POC 63 mg/dL Triglycerides, POC 55 mg/dL LDL Cholesterol POC 82 mg/dL Chol/HDL Ratio, POC 1.3 Non-HDL Cholesterol, POC 93 mg/dL Cholesterol Total, POC 157 mg/dL Capillary blood 11/18/2023 9 :00 AM HEAD BANQUET WAITER/WAITRESS Reagan Floyd MD POINT OF CARE TEST ORDER CHIDI Final Result from Last 3 Months or Most Recently Relevant to Health Maintenance Insurance [employer] MEDICARE ADVANTAGE [facility] Address: [address] [address] [place] [address] [employer] MED[employer]ARE Care Teams Pipe Assembly Worker Relationship Specialty Start Date End Date Cristian Vu DO PCP - General 02/12/17
[2025-04-04 11:54] LABS: Iron 75 ug/dL (49-181)
[2025-04-04 11:56] LABS: Alanine Aminotransferase 43 U/L (6-50); Albumin Level 4.1 g/dL (3.5-5.1); Alkaline Phosphatase 82 U/L (38-126); Anion Gap 7 mmol/L (4-12); Aspartate Amino Transferase 49 U/L (17-59); Bilirubin,Total 0.4 mg/dL (0.2-1.3); Blood Urea Nitrogen 18 mg/dL (9-20); Calcium 9.8 mg/dL (8.4-10.2); Carbon Dioxide 25 mmol/L (22-30); Chloride 107 mmol/L (98-107); Estimated Glomerular Filt Rate 59; Glucose 96 mg/dL (65-110); Potassium 4.3 mmol/L (3.4-5.0); Sodium 139 mmol/L (137-145); Total Protein 7.2 g/dL (6.3-8.2)
[2025-04-04 12:03] LABS: Percent Iron Saturation 30 % (20-50)
[2025-04-04 12:05] LABS: Hemoglobin A1C 5.9 % (<5.7)
[2025-04-04 13:03] LABS: Folic Acid 9.6 ng/mL (2.76->20)
[2025-04-04 13:12] LABS: Vitamin B12 > 1000.0 pg/mL (239-931)
== END 2025-04-04 10:30 | disposition home or self-care (01) ==
LOC: ANHLAB 10:30
PROVIDERS: PCP Nurse Practitioner; Visit Provider Internal Medicine Hematology & Oncology
DX: D64.9 Anemia, unspecified (principal); E11.9 Type 2 diabetes mellitus without complications
CPT/HCPCS: 36415; 80053; 82607; 82728; 82746; 83036; 83540; 83550; 85025

== ENCOUNTER 2025-04-20 11:57 | Emergency (ER) | payer MEDICARE, SELFPAY ==
[2025-04-20 12:06] VITALS: BP 138/70; PULSE 64; RESP 18; TEMP 36.9; O2SAT 100
--- NOTE | 2025-04-20 12:15 | ED.ALLEREA ---
HPI - Allergic Reaction General Chief complaint: Allergic Reaction Stated complaint: Swollen Face Source: patient Mode of arrival: ambulatory Limitations: no limitations History of Present Illness HPI narrative: Patient is a 84 year old male who presents to the clinic with complaints of swelling to his face since this morning. He states that he went to bed last night and woke up with both sides of his face swollen. He denies any new food, drinks, or medications. Denies any shortness of breath, tongue swelling, difficulty swallowing, nausea, or vomiting. Related Data Home Medications ?Medication ?Instructions ?Recorded ?Confirmed ?Last Taken ?Type epinephrine 0.3 mg/0.3 mL 0.3 mg IM ONCE 10/31/19 01/26/25 Unknown History injection, auto-injector (EpiPen 2-Tesfaye) magnesium oxide 400 mg (241.3 mg 400 mg PO DAILY 07/03/21 01/26/25 Unknown History magnesium) tablet ferrous sulfate 325 mg (65 mg 325 mg PO DAILY 08/16/21 01/26/25 Unknown History iron) tablet cholecalciferol (vitamin D3) 10 10 mcg PO DAILY 12/30/22 01/26/25 Unknown History mcg (400 unit) capsule apple cider vinegar 600 mg capsule mg PO .every other day 01/14/24 01/26/25 Unknown History Allergies Allergy/AdvReac Type Severity Reaction Status Date / Time Bumble Bee Allergy Mild UNKNOWN Uncoded 01/26/25 11:24 Review of Systems Review of Systems: CONSTITUTIONAL: Denies body aches, fever, chills, or sweats. EYES: Denies visual changes, redness, or discharge. Reports swelling to his face. ENT: Denies rhinorrhea, congestion, sore throat, or otalgia. CARDIOVASCULAR: Denies chest pain, palpitations, or edema. RESPIRATORY: Denies cough or dyspnea. GASTROINTESTINAL: Denies abdominal pain, nausea, vomiting, or diarrhea. GENITOURINARY: Denies dysuria or hematuria. SKIN: Denies rash, itching, or wounds. MUSCULOSKELETAL: Denies back pain, joint pain, or myalgia. NEUROLOGIC: Denies headache, numbness, tingling, or weakness. PSYCH: ?Denies depression or anxiety. All systems reviewed & are unremarkable except as noted in HPI and below PMFSH Past Medical History Medical History Hyperlipidemia Sarcoidosis, lung Prostate cancer Anemia Obesity Aortic valve regurgitation Mitral valve regurgitation Thoracic aortic aneurysm History of prostate cancer AAA (abdominal aortic aneurysm) Hypersomnia ADINA (obstructive sleep apnea) Erectile dysfunction Type 2 diabetes mellitus Hypertension Bradycardia Surgical History Surgical History Hx of hernia repair History of prostate surgery ONLY HAD RADIATION. HE STILL HAS HIS PROSTATE Family History Family History Father Hypertension Malignant neoplasm of prostate Mother Family history of cardiac disorder Social History Social History Smoking status: Never smoker Alcohol intake: current Alcohol use details: Pt drinks occasionally. Lack of Transportation: No Lack of Food: Never True Current Housing: I Have Housing Concerned About Future Housing: No Difficulty Paying Gas/Electric Bills: No Difficulty Paying for Meds: No Currently Unemployed: No Education: Trade/Vocational Certificate Difficulty w/ Childcare or Family Care: No Comments At time of signature, I have reviewed and agree with nursing past medical, surgical, social and family history unless otherwise noted. Please see nursing chart for further information. There is no relevant family history pertinent to the presenting complaint. Exam Narrative: GENERAL: Well-appearing, well-nourished, and in no acute distress. HEAD: Normocephalic, atraumatic. Edema noted bilateral cheeks and lips. No tongue edema. EYES: EOMI. ?No redness or drainage. Conjunctivae normal. ENT: Mucous membranes pink and moist. ?No rhinorrhea. ?TMs normal bilaterally. ?Throat normal. Uvula midline. NECK: Normal AROM. ?Supple. ?No lymphadenopathy. CHEST: ?No respiratory distress. Clear to auscultation. HEART: Regular rate and rhythm. No murmur appreciated. Normal peripheral pulses. ABDOMEN: Soft, nontender, nondistended, normal active bowel sounds. MUSCULOSKELETAL: ?No bony tenderness. EXTREMITIES: Normal range of motion. No edema. SKIN: Warm, dry, no rash. Capillary refill normal. ?Normal skin turgor. NEURO: No focal deficits. Alert and oriented x3. Gait steady. PSYCH: ?Normal affect. ?No signs of depression or anxiety. Course Course Level of Care: Express Care Visit Vital Signs Vital signs: Review Transfer Transfered to: [place] Accepting physician: Dr. aSn Transfer comments: Pt is agreeable to transfer. Requests transfer to [facility] via private vehicle. Declined EMS. Risks of transportation reviewed with pt including injury, worsening of condition and . v/u. Son will be driving pt; Report called to [facility], spoke with Dr. San, accepting physician. Pt is in stable condition at time of transfer. Advised to remain NPO and go directly to the hospital. MDM - Allergic Reaction MDM Narrative Medical decision making narrative: Discussed physical exam findings. Explained the importance of him going to ER for further evaluation. Patient agreeable to plan. He chose [facility]. Patient did decline EMS transportation and signed AMA form. Differential Diagnosis Differential diagnosis: Likely allergic reaction and angioedema Critical Care Time Critical Care Time Critical Care Time: No Discharge Plan Discharge Clinical Impression: Angioedema Qualifiers: Encounter type: initial encounter Qualified Code(s): T78.3XXA - Angioneurotic edema, initial encounter Patient Disposition: Acute Care Hospital Condition: Stable Patient Language: Luxembourgish Prescriptions: No Action epinephrine [EpiPen 2-Tesfaye] 0.3 mg/0.3 mL auto-injector 0.3 mg IM ONCE cholecalciferol (vitamin D3) 10 mcg (400 unit) capsule 10 mcg PO DAILY magnesium oxide 400 mg (241.3 mg magnesium) tablet 400 mg PO DAILY fluticasone propionate [Flonase Allergy Relief] 50 mcg/actuation spray,suspension 1 spray intranasal BID Qty: 16 3RF Rx Instructions: administer into each nostril ferrous sulfate 325 mg (65 mg iron) tablet 325 mg PO DAILY apple cider vinegar 600 mg capsule PO .every other day (DME) FreeStyle Tommy 3 [place] Misc See Rx Instructions .Route Qty: 1 0RF Rx Instructions: Use to check BS (DME) FreeStyle Tommy 3 Sensor Device See Rx Instructions .Route Qty: 1 5RF Rx Instructions: Change every 14 days (DME) BiPap See Rx Instructions .Route .MEDSUPPLY Qty: 1 0RF Rx Instructions: Inspiratory pressure 14cm & expiratory pressure of 9cm using a extra large Wisp nasal mask with heated humidifier. lisinopril-hydrochlorothiazide 20-12.5 mg tablet See Rx Instructions .ROUTE .COMPLEX Qty: 90 1RF Dose Instruction: TAKE 1 TABLET DAILY Rx Instructions: TAKE 1 TABLET DAILY allopurinol 300 mg tablet See Rx Instructions .ROUTE .COMPLEX Qty: 90 1RF Dose Instruction: TAKE 1 TABLET DAILY Rx Instructions: TAKE 1 TABLET DAILY tamsulosin 0.4 mg capsule See Rx Instructions .ROUTE .COMPLEX Qty: 90 1RF Dose Instruction: TAKE 1 CAPSULE DAILY Rx Instructions: TAKE 1 CAPSULE DAILY amlodipine 10 mg tablet See Rx Instructions .ROUTE .COMPLEX Qty: 90 1RF Dose Instruction: TAKE 1 TABLET DAILY Rx Instructions: TAKE 1 TABLET DAILY metformin 500 mg tablet 500 mg PO BID Qty: 180 1RF sildenafil [Viagra] 100 mg tablet 100 mg PO DAILY PRN (Reason: sexual activity) Qty: 60 0RF Rx Instructions: administer 30 minutes to 4 hours before activity atorvastatin 10 mg tablet See Rx Instructions .ROUTE .COMPLEX Qty: 90 1RF Dose Instruction: TAKE 1 TABLET BY MOUTH DAILY Rx Instructions: TAKE 1 TABLET BY MOUTH DAILY Follow-up/Referrals: Madina Conn SOCIAL AND POLITICAL STUDIES PROFESSOR [Primary Care Provider] -
== END 2025-04-20 12:15 | disposition short-term general hospital (02) ==
LOC: EXPGOSH 11:58
PROVIDERS: PCP Nurse Practitioner
DX: T78.3XXA Angioneurotic edema, initial encounter (principal); I10 Essential (primary) hypertension; E11.9 Type 2 diabetes mellitus without complications; Z79.84 Long term (current) use of oral hypoglycemic drugs; E78.5 Hyperlipidemia, unspecified; D86.0 Sarcoidosis of lung; E66.9 Obesity, unspecified; Z68.28 Body mass index [BMI] 28.0-28.9, adult; I08.0 Rheumatic disorders of both mitral and aortic valves; I71.20 Thoracic aortic aneurysm, without rupture, unspecified; Z85.46 Personal history of malignant neoplasm of prostate
CPT/HCPCS: 99212; G0463

== ENCOUNTER 2025-04-20 12:35 | Emergency (ER) | payer MEDICARE, SELFPAY ==
[2025-04-20 12:42] VITALS: BP 140/63; PULSE 61; RESP 16; TEMP 36.6; O2SAT 100
[2025-04-20 13:48] VITALS: BP 142/63; PULSE 55; RESP 12; O2SAT 100
[2025-04-20 13:55] VITALS: BP 142/63; PULSE 53; RESP 16; O2SAT 100
--- NOTE | 2025-04-20 15:05 | ED.ALLEREA ---
HPI - Allergic Reaction General Chief complaint: Allergic Reaction Stated complaint: facial swelling since this morning Time Seen by Provider: 04/20/25 14:21 Source: patient and family (Daughters) Mode of arrival: ambulatory Limitations: no limitations History of Present Illness HPI narrative: Patient presents with concern for allergic reaction versus angioedema. He noticed facial swelling this morning when he woke up around 7:30 a.m.. He is on 9 medications including metformin for type 2 diabetes mellitus and lisinopril. There have been no changes these medications including no changes in doses or frequency. No new medications. No new foods. He denies any new soaps, detergents, toothpaste, clothes. He denies any difficulty swallowing. Denies diarrhea, shortness of breath, AMS. He takes his lisinopril every evening and did so last night. He states the swelling is primarily in his face but more so in his lips and had been worse that it is now. Initially went to the urgent care and was sent here. He has had something similar happened before with bee stings though known sting/bite. No tongue swelling. Did not take any medications at home and denies receiving any at urgent care. Confirms he has a primary care physician. Related Data Home Medications ?Medication ?Instructions ?Recorded ?Confirmed ?Last Taken ?Type magnesium oxide 400 mg (241.3 mg 400 mg PO DAILY 07/03/21 04/21/25 Unknown History magnesium) tablet ferrous sulfate 325 mg (65 mg 325 mg PO DAILY 08/16/21 04/21/25 Unknown History iron) tablet cholecalciferol (vitamin D3) 10 10 mcg PO DAILY 12/30/22 04/21/25 Unknown History mcg (400 unit) capsule apple cider vinegar 600 mg capsule mg PO .every other day 01/14/24 04/21/25 Unknown History Allergies Allergy/AdvReac Type Severity Reaction Status Date / Time lisinopril Allergy Severe Swelling Verified 04/21/25 10:06 of Lip/Tongue/Throat Bumble Bee Allergy Mild UNKNOWN Uncoded 04/21/25 10:06 [facility] Past Medical History Medical History Hyperlipidemia Sarcoidosis, lung Prostate cancer Anemia Obesity Aortic valve regurgitation Mitral valve regurgitation Thoracic aortic aneurysm History of prostate cancer AAA (abdominal aortic aneurysm) Hypersomnia ADINA (obstructive sleep apnea) Erectile dysfunction Type 2 diabetes mellitus Hypertension Bradycardia Surgical History Surgical History Hx of hernia repair History of prostate surgery ONLY HAD RADIATION. HE STILL HAS HIS PROSTATE Family History Family History Father Hypertension Malignant neoplasm of prostate Mother Family history of cardiac disorder Social History Social History Social History: Has (at least) 2 daughters Smoking status: Never smoker Alcohol intake: current Alcohol use details: Pt drinks occasionally. Lack of Transportation: No Lack of Food: Never True Current Housing: I Have Housing Concerned About Future Housing: No Difficulty Paying Gas/Electric Bills: No Difficulty Paying for Meds: No Currently Unemployed: No Education: Trade/Vocational Certificate Difficulty w/ Childcare or Family Care: No Exam Narrative: GENERAL: Well-appearing, well-nourished, and in no acute distress. HEAD: Normocephalic, atraumatic. EYES: Non injected, non icteric. ENT: Nares clear, no rhinorrhea or epistaxis. Gross auditory acuity intact. Uvula midline. THere is some mild left palatine tonsillar swelling/hypertrophy. Uvula midline. Slight facial swelling bilaterally but no induration of face or along buccal mucosa. Tongue without swelling, soft. No swelling under tongue, no woody appearance. No trismus. Upper and lower lip swelling, left slightly worse than right on the upper. Hearing aid in L ear; gross auditory acuity intact with this. NECK: Supple. No meningismus. Mild lymphadenopathy CHEST: Speaking in full sentences. No respiratory distress. HEART: Regular rate and rhythm. . ABDOMEN: Soft, nondistended. EXTREMITIES: Normal range of motion. No lower extremity edema. SKIN: Warm, dry, no rash. No urticaria. NEURO: No focal deficits. Alert and oriented. Answering questions. Following commands. Normal speech without aphasia or dysarthria. PSYCH: Normal mood and affect. Course Vital Signs Vital signs: Vital Signs Temperature 97.9 F 04/20/25 12:42 Pulse Rate 61 04/20/25 12:42 Respiratory Rate 16 04/20/25 12:42 Blood Pressure 140/63 04/20/25 12:42 Pulse Oximetry 100 04/20/25 12:42 Oxygen Delivery Room Air 04/20/25 12:42 Temperature 97.9 F 04/20/25 12:42 Pulse Rate 51 L 04/20/25 15:16 Respiratory Rate 19 04/20/25 15:16 Blood Pressure 125/70 04/20/25 15:16 Pulse Oximetry 100 04/20/25 15:16 Oxygen Delivery Room Air 04/20/25 13:48 MDM - Allergic Reaction MDM Narrative Medical decision making narrative: Patient presents with facial swelling and lip swelling starting this morning when he woke up at 7:30 a.m.. He does have an allergic reaction to bee stings but no known exposures. No other new environmental or medication exposures although he does take lisinopril a every evening and took this dose as regularly prescribed last night. In the emergency department they are afebrile with vital signs within normal limits. Although unlikely histamine mediated, Out of an abundance of precaution , will give steroid, diphenhydramine, and, for consideration of other etiologies tranexamic acid. Swelling was appreciated at 7:30am and he states it has actually been improving throughout the morning/afternoon without intervention. Given this, patient has already gone more than 6 hours without worsening condition. His physical exam appears stable/improved from what was appreciated at urgent care. Advised to discontinue lisinopril and this was added to allergy list. Advised follow-up with primary care physician for alternative medication. Discharged with prescriptions for both diphenhydramine and short small dose steroid although again, unlikely histamine mediated. Differential Diagnosis Differential diagnosis: Likely anaphylaxis, allergic reaction, angioedema and adverse reaction to drug Medical Records Attestation: I reviewed the patient's medical records. Medical records narrative: Reviewed physical exam from urgent care: HEAD: Normocephalic, atraumatic. Edema noted bilateral cheeks and lips. No tongue edema Discharge Plan Discharge Clinical Impression: Angioedema of lips, Angioedema Patient Disposition: Home Condition: Stable Instructions: Antibiotic Form, Angioedema (ED) Additional Instructions: As we discussed this might represent a nonspecific allergic reaction however it does appear to be a specific condition known as angioedema, for which a common culprit is lisinopril, even if people who have taken it for years. STOP taking this medication and follow-up with your primary care physician regarding if there is an alternative medication you should take. Lisinopril has been added to your allergy list. This particular type of reaction does not typically respond to antihistamines however there is also no harm in taking them so you can continue to use diphenhydramine/Benadryl if desired and the short course of steroid can help with general inflammation though you may find your blood sugars are elevated for a few days as a result. Return to the emergency department any new, worsening , or unmanaged symptoms. Patient Language: Icelandic Prescriptions: New prednisone 10 mg tablet 10 mg PO DAILY 4 Days Qty: 4 0RF Rx Instructions: start 04/21 (received IV steroid in ED 04/20) diphenhydramine HCl [Allergy (diphenhydramine)] 25 mg capsule 25 mg PO TID PRN (Reason: allergic reaction) Qty: 16 0RF No Action cholecalciferol (vitamin D3) 10 mcg (400 unit) capsule 10 mcg PO DAILY hydrochlorothiazide 12.5 mg tablet 12.5 mg PO QAM Qty: 90 3RF epinephrine [EpiPen 2-Tesfaye] 0.3 mg/0.3 mL auto-injector 0.3 mg IM ONCE Qty: 2 0RF magnesium oxide 400 mg (241.3 mg magnesium) tablet 400 mg PO DAILY fluticasone propionate [Flonase Allergy Relief] 50 mcg/actuation spray,suspension 1 spray intranasal BID Qty: 16 3RF Rx Instructions: administer into each nostril ferrous sulfate 325 mg (65 mg iron) tablet 325 mg PO DAILY apple cider vinegar 600 mg capsule PO .every other day (DME) FreeStyle Tommy 3 [place] Misc See Rx Instructions .Route Qty: 1 0RF Rx Instructions: Use to check BS (DME) FreeStyle Tommy 3 Sensor Device See Rx Instructions .Route Qty: 1 5RF Rx Instructions: Change every 14 days (DME) BiPap See Rx Instructions .Route .MEDSUPPLY Qty: 1 0RF Rx Instructions: Inspiratory pressure 14cm & expiratory pressure of 9cm using a extra large Wisp nasal mask with heated humidifier. allopurinol 300 mg tablet See Rx Instructions .ROUTE .COMPLEX Qty: 90 1RF Dose Instruction: TAKE 1 TABLET DAILY Rx Instructions: TAKE 1 TABLET DAILY tamsulosin 0.4 mg capsule See Rx Instructions .ROUTE .COMPLEX Qty: 90 1RF Dose Instruction: TAKE 1 CAPSULE DAILY Rx Instructions: TAKE 1 CAPSULE DAILY amlodipine 10 mg tablet See Rx Instructions .ROUTE .COMPLEX Qty: 90 1RF Dose Instruction: TAKE 1 TABLET DAILY Rx Instructions: TAKE 1 TABLET DAILY metformin 500 mg tablet 500 mg PO BID Qty: 180 1RF sildenafil [Viagra] 100 mg tablet 100 mg PO DAILY PRN (Reason: sexual activity) Qty: 60 0RF Rx Instructions: administer 30 minutes to 4 hours before activity atorvastatin 10 mg tablet See Rx Instructions .ROUTE .COMPLEX Qty: 90 1RF Dose Instruction: TAKE 1 TABLET BY MOUTH DAILY Rx Instructions: TAKE 1 TABLET BY MOUTH DAILY Follow-up/Referrals: Madina Conn, HOME MISSION WORKER [Primary Care Provider] - Cristian Vu DO [Physician] - (PCP per patient) Time of Disposition: 16:00
[2025-04-20 15:16] VITALS: BP 125/70; PULSE 51; RESP 19; O2SAT 100
[2025-04-20] MEDS: diphenhydrAMINE HCl INJ 50 MG/ML VIAL 25 MG IV PUSH (15:30)
[2025-04-20] MEDS: TRANEXAMIC ACID 1,000 MG/10 ML AMPUL 1000 MG IV PUSH (15:31)
[2025-04-20] MEDS: methylPREDNISolone SOD SUCC 125 MG VIAL IV PUSH (15:31)
== END 2025-04-20 16:15 | disposition home or self-care (01) ==
PROVIDERS: Emergency Provider Student in an Organized Health Care Education/Training Program; PCP Nurse Practitioner
DX: T78.3XXA Angioneurotic edema, initial encounter (principal); T46.4X5A Adverse effect of angiotensin-converting-enzyme inhibitors, initial encounter; I08.0 Rheumatic disorders of both mitral and aortic valves; I10 Essential (primary) hypertension; E11.9 Type 2 diabetes mellitus without complications; E78.5 Hyperlipidemia, unspecified; G47.33 Obstructive sleep apnea (adult) (pediatric); Z85.46 Personal history of malignant neoplasm of prostate; Z92.3 Personal history of irradiation; Z79.84 Long term (current) use of oral hypoglycemic drugs; Z79.899 Other long term (current) drug therapy
CPT/HCPCS: 96374; 96375; 99284; J1200; J2919